=== PATIENT | female | born 1985 | race Caucasian/White ===

== ENCOUNTER 2016-09-14 18:27 | Emergency (ER) | payer OTHER ==
[~2016-09-14] VITALS: Ht 160 cm; Wt 96.2 kg
[2016-09-14] MEDS ORDERED: MULTI-DAY VITA1 EACH PO (19:08)
[2016-09-14] MEDS ORDERED: DEXTROAMP-AMPHE10 MG PO (19:08)
--- NOTE | 2016-09-14 19:58 | ED HAND/WRIST INJURY COMPLAINT ---
History of Present Illness General Chief Complaint: Laceration Procedure Stated Complaint: LAC TO LEFT INDEX FINGER Source: patient Exam Limitations: no limitations Vital Signs & Intake/Output Vital Signs & Intake/Output Vital Signs Date Time Temp Pulse Resp B/P Pulse O2 O2 Flow FiO2 Ox Delivery Rate 09/14 2023 97.7 93 18 125/73 99 Room Air 09/14 1832 97.2 110 20 143/80 98 Room Air Allergies Coded Allergies: No Known Allergies (09/14/16) Reconcile Medications Dextroamphetamine/Amphetamine (Dextroamp-Amphetamin 10 MG Tab) 10 MG TABLET 1 TAB PO TID PRN ADD (Reported) Multivitamin (Multi-Day Vitamins) 1 EACH TABLET 1 TAB PO DAILY SUPPLEMENT ( Reported) Triage Note: TRIAGE: PT TO ER C/C LACERATION TO L INDEX FINGER 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 STATES IT WAS A CLEAN BLADE. HAS DRESSING IN PLACE, BLEEDING CONTROLLED. Triage Nurses Notes Reviewed? 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 She has moderate sharp pain, occurred prior to arrival while at work, bleeding controlled with direct pressure, she is unsure when her last tetanus was. (KAE IBARRA) Past History Travel History Traveled to [place] past 21 day No Medical History Any Pertinent Medical History? 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 No (KAE IBARRA) Review of Systems Review of Systems Constitutional: Reports: see HPI. EENTM: Reports: no symptoms. Respiratory: Reports: no symptoms. Cardiovascular: Reports: no symptoms. GI: Reports: no symptoms. Genitourinary: Reports: no symptoms. Musculoskeletal: Reports: see HPI. Skin: Reports: no symptoms. Neurological/Psychological: Reports: no symptoms. Hematologic/Endocrine: Reports: no symptoms. Immunologic/Allergic: Reports: no symptoms. All Other Systems: Reviewed and Negative (KAE IBARRA) Physical Exam Physical Exam General Appearance: well developed/nourished Hand Left: evidence of injury, 2nd finger Hand Right: normal inspection, normal range of motion Comments: Well-developed well-nourished no apparent distress. HEENT: Atraumatic, extraocular motion intact Neck: Supple, no lymphadenopathy Back: Nontender Respiratory: No respiratory distress Extremities: No edema, full range of motion Neuro: Alert and oriented x3 Psych: Mood affect normal, normal memory normal judgment. Skin: Warm and dry, no rash on exposed skin Left hand index finger 1.5 cm flap-type laceration linear to the distal phalanx pulp with exposed subcutaneous fat. No active bleeding. Neurovascularly intact full range of motion. (KAE IBARRA) Progress Differential Diagnosis: abscess, cellulitis, contusion, compartment syndrome, dislocation, felon, fracture, gout, paronychia, septic arthritis, sprain, tenosynovitis Plan of Care: Current Medications Sig/Jac Start time Last Medication Dose Stop Time Status Admin Tetanus/Diphtheria 0.5 ML ONCE ONE 09/14 2014 [facility] Toxoids Adsorbed 09/14 2015 ([facility]) Comments: After verbal consent was obtained the laceration area was anesthetized with lidocaine 1 mL local into the left index finger distal phalanx It was prepped and draped in a sterile fashion with Betadine. The wound was copiously irrigated with normal saline. The wound was inspected and no foreign bodies or tendon lacerations were noted on exam and there is no functional deficit. There is no arterial bleeding. 5-0 nylon simple interrupted sutures were placed 4 Sutures in total. Bacitracin and sterile dressing was applied. Distally the neurovascular status was intact postprocedure. The patient tolerated the procedure well without complications. Infection and risk of foreign body or tendon laceration was discussed with patient. Follow-up instructions and wound care was discussed. tetanus vaccine was updated (KAE IBARRA) Departure Departure Disposition: HOME OR SELF CARE Condition: Stable Clinical Impression Primary Impression: Finger laceration Qualifiers: Encounter type: initial encounter Qualified Code: S61.219A - Laceration without foreign body of unspecified finger without damage to nail, initial encounter Referrals: UNKNOWN (PCP/Family) Additional Instructions: Follow-up in 7-10 days with occupational medicine or return to the ER for suture removal Watch for signs of infection: Redness, swelling, pain, fever, discharge The possibility of a tendon laceration or foreign body exists. 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 I have also reviewed all the pertinent lab results and diagnostic results. I agree with the findings and the plan of care as documented in the PA's/MANAGER MATERIAL's documentation. x I have reviewed the ED Record and agree with the PA's/MANAGER MATERIAL's documentation. [] Additions or exceptions (if any) to the PAs/MANAGER MATERIAL's note and plan are summarized below: [] (JEAN SULLIVAN,KIM)
[2016-09-14 20:24] VITALS: BP 125/73
== END 2016-09-14 20:36 ==
LOC: ERH 18:27
DX: S61.211A Laceration without foreign body of left index finger without damage to nail, initial encounter (principal); W26.0XXA Contact with knife, initial encounter
CPT/HCPCS: 90471; 90714